=== PATIENT | male | born 1950 | race Caucasian/White ===

== ENCOUNTER 2024-03-04 06:03 | Day surgery (SDC) | payer MEDICARE, SELFPAY ==
[2024-03-04] MEDS: LACTATED RINGERS 1000 ML 1,000 ML 100 ML IV (06:00)
[2024-03-04 06:23] VITALS: BMI 29.8
[2024-03-04 06:54] VITALS: BP 147/96; PULSE 61; RESP 16; TEMP 36.4; O2SAT 96
[2024-03-04] MEDS: SODIUM CHLORIDE 0.9 % (FLUSH) 10 ML SYRINGE IVF (07:01)
--- NOTE | 2024-03-04 07:19 | CRLHL7_ITS ---
For Patients: As a result of the Cures Act, medical imaging exams and procedure reports are released immediately into your electronic medical record. You may view this report before your referring provider. If you have questions, please contact your health care provider. Indication: INTRA OP RT HAMMERTOE 5TH Technique: One fluoroscopic image of the right forefoot. Fluoroscopic time 3.0 seconds IMPRESSION: Fluoroscopic guidance for right 5th toe hammertoe correction Dictated by Maurice Mascorro MD @ 03/04/2024 12:47:21 PM (Electronically Signed)
[2024-03-04] MEDS: CEFAZOLIN 2 GM INJ IVP (07:20)
[2024-03-04] MEDS: BUPIVACAINE 0.25% 30 ML INJECTION (07:26)
[2024-03-04 08:30] VITALS: BP 106/66; PULSE 60; RESP 16; TEMP 37; O2SAT 91
--- NOTE | 2024-03-04 08:38 | W.ANESCHARGE ---
Anesthesia Charges Start Date/Time Anesthesia Start Date: 03/04/24 Anesthesia Start Time: 07:12 Stop Date/Time Anesthesia Stop Date: 03/04/24 Anesthesia Stop Time: 08:34 Summary Extremes of Age - Over 70 or under 1: [employer]
[2024-03-04 08:45] VITALS: BP 109/68; PULSE 52; RESP 16; O2SAT 93
[2024-03-04 09:00] VITALS: BP 123/77; PULSE 55; RESP 16; O2SAT 93
--- NOTE | 2024-03-04 09:01 | W.PODPROC_ITS ---
Date of Procedure: 03/04/24 Surgeon: Prince Werner DPM Pre-op Diagnosis: 1. Hammertoe 5th right 2. Hammertoe 5th left Post-op Diagnosis: 1. Hammertoe 5th right 2. Hammertoe 5th left Type of Procedure: 1. Hammertoe correction 5th digit right 2. hammertoe correction 5th digit left Indications: patient was seen in clinic for ongoing 5th toe hammertoes. Pain not resolve with conservative care. He wishes to proceed with surgery. I reviewed the procedure, recovery, expectation potential complications. This includes but not limited to: Poor wound healing, infection, under correction, over correction, continued pain, potentially future surgery, deep venous thrombosis, pulmonary embolism and possible . Patient understands risks written consent was obtained. Site marked. Procedure Description: Patient brought the operating room placed supine position on operating table. IV sedation was initiated local anesthetic injected into the right and left feet. Was prepped and draped in sterile fashion. Standard time-out protocol followed. Left foot was exsanguinated the tourniquet inflated. Procedure 1. linear incision was made over the medial aspect of the DIPJ and distal phalanx 5th toe. Incision was carried directly to bone. Soft tissue reflected away from the osseous structures. Rotary bur was then used to remove the enlarged condyle and bone from the medial aspect of the Fused middle and distal phalanx. Wound was irrigated normal sterile saline. Incision closed with 4-0 Prolene. Linear incision made over the PIPJ 5th toe. Transverse incision made through the extensor tendon and joint capsule. The medial and l ateral collateral ligaments were released. Sagittal saw was used to resect the head of the proximal phalanx. Wound irrigated normal sterile saline. flexor tendon was then released. Extensor tendon was then repaired with the toe in a reduced position. Skin closed with 4-0 Prolene. Sterile dressing applied and the tourniquet released. Normal capillary fill time returned to the 5th digit. procedure 2. linear incision was made over the medial aspect of the DIPJ and distal phalanx 5th toe. Incision was carried directly to bone. Soft tissue reflected away from the osseous structures. Rotary bur was then used to remove the enlarged condyle and bone from the Distal phalanx. Wound was irrigated normal sterile saline. Incision closed with 4-0 Prolene. Linear incision was then made over the middle phalanx. transverse incision was made through the long extensor tendon. Middle phalanx was then disarticulated at both the PIPJ and DIPJ and removed. The long flexor tendon was then released. the extensor tendon was repaired with 4-0 Vicryl after irrigation. Skin closed with 4-0 Prolene. Sterile dressing was applied the tourniquet released. Normal capillary fill time returned to the 5th digit. Complications: None apparent Anesthesia: MAC and local Hemostasis: ankle Estimated blood loss (mL): 2 Specimens: none sent Disposition: same day
--- NOTE | 2024-03-04 09:56 | W.ANESCHARGE ---
Anesthesia Charges Start Date/Time Anesthesia Start Date: 03/04/24 Anesthesia Start Time: 07:12 Stop Date/Time Anesthesia Stop Date: 03/04/24 Anesthesia Stop Time: 08:34 Summary Extremes of Age - Over 70 or under 1: MDA
== END 2024-03-04 10:05 | disposition home or self-care (01) ==
PROVIDERS: PCP Family Medicine; Visit Provider Podiatrist
PROC: (CPT 28285; principal; 2024-03-04 07:15)
DX: M20.42 Other hammer toe(s) (acquired), left foot (principal); M20.41 Other hammer toe(s) (acquired), right foot
CPT/HCPCS: 28285 ×2; 01480; 73620; 76000; 99100; J0665; J0690; J2704; J3010; J7120